=== PATIENT | male | born 1995 | race Caucasian/White ===

== ENCOUNTER 2023-04-13 22:49 | Emergency (ER) | payer OTHER ==
[2023-04-13 23:11] VITALS: BP 142/94; PULSE 109; RESP 18; TEMP 98
--- NOTE | 2023-04-13 23:27 | ED ---
General Adult HPI - General Source: patient, RN notes reviewed Mode of arrival: ambulatory Limitations: no limitations <Mariia Lozoya - Last Filed: 04/13/23 23:25> <Randy Thornton - Last Filed: 04/14/23 02:21> <Jeremiah Nicholson - Last Filed: 04/14/23 12:38> - General Chief complaint: Psychiatric Symptoms Stated complaint: Mental Health - History of Present Illness Initial comments: 27-year-old male presents emergency department for chief complaint of racing thoughts 3 days. He does report a history of feeling anxious and depressed in the past with no official diagnosis. He is not currently on psychiatric mediation. Denies hallucinations, SI, HI. (Mariia Lozoya) This is a 19-year-old male to the emergency department for psychiatric evaluation racing thoughts, uncomfortable (Randy Thornton) - Related Data Allergies Allergy/AdvReac Type Severity Reaction Status Date / Time No Known Allergies Allergy Verified 04/14/23 07:23 Review of Systems ROS Other: All systems not noted in ROS Statement are negative. <Mariia Lozoya - Last Filed: 04/13/23 23:25> ROS Other: All systems not noted in ROS Statement are negative. <Randy Thornton - Last Filed: 04/14/23 02:21> ROS Other: All systems not noted in ROS Statement are negative. <Jeremiah Nicholson - Last Filed: 04/14/23 12:38> ROS Statement: Those systems with pertinent positive or pertinent negative responses have been documented in the HPI. Past Medical History Past Medical History: No Reported History History of Any Multi-Drug Resistant Organisms: None Reported Past Surgical History: No Surgical Hx Reported Past Psychological History: Anxiety, Depression Smoking Status: Never smoker Past Alcohol Use History: Abuse, Daily, Heavy Past Drug Use History: Marijuana <Mariia Lozoya - Last Filed: 04/13/23 23:25> General Exam Limitations: no limitations <Mariia Lozoya - Last Filed: 04/13/23 23:25> General appearance: alert, in no apparent distress Head exam: Present: atraumatic, normocephalic, normal inspection Eye exam: Present: normal appearance, PERRL, EOMI. Absent: scleral icterus, conjunctival injection, periorbital swelling ENT exam: Present: normal exam, mucous membranes moist Neck exam: Present: normal inspection. Absent: tenderness, meningismus, lymphadenopathy Respiratory exam: Present: normal lung sounds bilaterally. Absent: respiratory distress, wheezes, rales, rhonchi, stridor Cardiovascular Exam: Present: regular rate, normal rhythm, normal heart sounds. Absent: systolic murmur, diastolic murmur, rubs, gallop, clicks GI/Abdominal exam: Present: soft, normal bowel sounds. Absent: distended, tenderness, guarding, rebound, rigid Extremities exam: Present: normal inspection, full ROM, normal capillary refill. Absent: tenderness, pedal edema, joint swelling, calf tenderness Back exam: Present: normal inspection Neurological exam: Present: alert, oriented X3, CN II-XII intact Psychiatric exam: Present: normal affect, normal mood Skin exam: Present: warm, dry, intact, normal color. Absent: rash <Randy Thornton - Last Filed: 04/14/23 02:21> - General Exam Comments Initial Comments: Visual Physical Exam Vital signs reviewed General: anxious, nontoxic, no acute distress. Head: Normocephalic, atraumatic Eyes: PERRLA, EOMI ENT: Airway patent Chest: Nonlabored breathing Skin: No visual rash, normal skin tone Neuro: Alert and oriented 3 Musculoskeletal: No gross abnormalities (Mariia Lozoya) Course <Randy Thornton - Last Filed: 04/14/23 02:21> Vital Signs 04/13/23 23:00 Temperature 98 F Pulse Rate 109 H Respiratory 18 Rate Blood Pressure 142/94 O2 Sat by Pulse 97 Oximetry - Reevaluation(s) Reevaluation #1: 04/14/23 02:21 Medical record is reviewed (Randy Thornton) Reevaluation #2: 04/14/23 02:21 Medical clear for psychiatric evaluation (Randy Thornton) Medical Decision Making <Mariia Lozoya - Last Filed: 04/13/23 23:25> <Jeremiah Nicholson - Last Filed: 04/14/23 12:38> - Medical Decision Making Quick note preformed by Mariia Lozoya PA-C (Mariia Lozoya) Patient care is signed out to me by previous shift physician, Dr. Julian. Briefly patient is a 19-year-old male presents emergency department for racing thoughts. She is medically cleared for EPS evaluation. I was notified by EPS at patient had been evaluated and cleared for discharge. (Jeremiah Nicholson) Disposition <Mariia Lozoya - Last Filed: 04/13/23 23:25> <Randy Thornton - Last Filed: 04/14/23 02:21> Is patient prescribed a controlled substance at d/c from ED?: No <Jeremiah Nicholson - Last Filed: 04/14/23 12:38> Clinical Impression: Acute anxiety Disposition: HOME SELF-CARE Condition: Good Referrals: None,Stated [Primary Care Provider] - 1-2 days
[2023-04-14] MEDS ORDERED: LORazepam 1 MG TAB PO STA (01:47)
== END 2023-04-14 13:07 | disposition home or self-care (01) ==
LOC: EC 22:49
DX: F41.9 Anxiety disorder, unspecified (principal); F12.90 Cannabis use, unspecified, uncomplicated
CPT/HCPCS: 82075; 99285